=== PATIENT | female | born 1970 | race African-American/Black ===

== ENCOUNTER 2017-01-07 11:54 | Emergency (ER) | payer MEDICAID ==
[~2017-01-07] VITALS: Ht 172.7 cm; Wt 111.0 kg
[2017-01-07 12:29] VITALS: BP 143/77
[2017-01-07] MEDS ORDERED: FAMOTIDINE 20MG/2ML VIAL IV ONE (13:00)
[2017-01-07] MEDS ORDERED: METHYLPREDNISOLONE SOD SUCC 125 MG/2 ML VIAL IV ONE (13:00)
[2017-01-07] MEDS ORDERED: DIPHENHYDRAMINE 50MG/ML VIAL IV ONE (13:00)
== END 2017-01-07 14:05 | disposition home or self-care (01) ==
LOC: ER 14:05
DX: T78.40XA Allergy, unspecified, initial encounter (principal); Z86.011 Personal history of benign neoplasm of the brain; Z87.828 Personal history of other (healed) physical injury and trauma; Z91.030 Bee allergy status; X58.XXXA Exposure to other specified factors, initial encounter
CPT/HCPCS: 96374; 96375; 99284; J1200; J2930; J3490; Z7610